=== PATIENT | male | born 1990 | race Caucasian/White ===

== ENCOUNTER 2021-09-02 09:32 | Emergency (ER) | payer BC ==
[~2021-09-02] VITALS: Ht 182.9 cm; Wt 140.6 kg
[2021-09-02 09:38] VITALS: BP_SYST 137
--- NOTE | 2021-09-02 09:40 | NUR ---
Patient to ER bed 4 to gown for evaluation. Side rails up.
--- NOTE | 2021-09-02 09:45 | NUR ---
PT CAME IN FROM HOME C/O WORSENING LOWER BACK PAIN OVER THE LAST WEEK. DENIES ANY SPECIFIC INJURY OR TRAUMA. PT IS IN OBVIOUS DISCOMFORT. AMBULATORY, AAOX4, V/S STABLE
--- NOTE | 2021-09-02 09:48 | NUR ---
ER at bedside examining patient.
[2021-09-02] MEDS ORDERED: KETOROLAC TROMETHAMINE 60 MG/2 ML VIAL IM ONE (10:00)
[2021-09-02] MEDS ORDERED: HYDROcodone/ACETAMIN 10-325 MG TAB PO ONE (10:00)
--- NOTE | 2021-09-02 10:00 | NUR ---
PORTABLE X-RAY AT THE BEDSIDE
[2021-09-02 11:13] VITALS: BP_SYST 132
--- NOTE | 2021-09-02 11:14 | NUR ---
Patient given written and verbal discharge instructions and verbalizes understanding. ER MD discussed with patient the results and treatment provided. Patient in stable condition. ID arm band removed. Rx of MOTRIN AND IBUPROFEN given. Patient educated on pain management and to follow up with PMD. Pain Scale 4/10. Opportunity for questions provided and answered. Medication side effect fact sheet provided.
[2021-09-02] MEDS ORDERED: HYDR-3917 PO (12:16)
[2021-09-02] MEDS ORDERED: IBUP-1971 PO (12:16)
== END 2021-09-02 11:13 | disposition home or self-care (01) ==
LOC: SED 09:32
DX: S33.5XXA Sprain of ligaments of lumbar spine, initial encounter (principal); X50.0XXA Overexertion from strenuous movement or load, initial encounter; Y93.89 Activity, other specified; Y92.89 Other specified places as the place of occurrence of the external cause; Y99.8 Other external cause status
CPT/HCPCS: 72100; 96372; 99283; J1885